=== PATIENT | female | born 1960 | race Caucasian/White ===

== ENCOUNTER → 2018-09-25 | Outpatient (CLI) | payer OTHER ==
[2017-08-25 10:29] VITALS: BMI 29.1
[~2018-09-25] MED LIST: ACET-1966 PO; ASPI-715 PO; AZI250 PO; CHOL10005 PO; DIA5 PO; DOCU-416 PO; EZET1TAB70 PO; HYDR473S4 PO; IBUP-56 PO; IBUP800T37 PO; MECL25TA27 PO; MELA5TAB20 PO; METH454P5 PO; MULT-27 PO; OXYC-865 PO; PAN20 PO; PROG100C PO; [UNRECOGNIZED DRUG - OTHER]
--- NOTE | 2018-09-25 14:32 | RADIOLOGY IMAGING REPORT ---
FACILITY: [facility] PATIENT NAME: Ofelia Huff : 1960 MR: [id number] V: [id number] EXAM DATE: ORDERING PHYSICIAN: MAREN VERA TECHNOLOGIST: Location: [facility] Patient: Ofelia Huff : 1960 Visit/Account:[id number] Date of Sevice: 09/25/2018 Lumbar spine Indication: Back pain. Comparison: None available FINDINGS: 3 views of the lumbar spine were obtained. There are 5 lumbar type vertebral bodies. There is no acute osseous or acute alignment abnormality. Moderate degenerative disc space disease is noted at L5-S1 with underlying facet arthropathy. The re mainder the disc spaces show only mild narrowing. The vertebral body heights appear well-maintained. IMPRESSION: 1. Moderate degenerative disc space disease at L5-S1. No acute abnormality noted Report Dictated By: Yariel Flores at 09/25/2018 2:26 PM Report E-Signed By: Yariel Flores at 09/25/2018 2:27 PM WSN:[id number]
--- NOTE | 2018-09-25 15:48 | RADIOLOGY IMAGING REPORT ---
FACILITY: PATIENT NAME: HERMILO RUDD : [id number] MR: [id number] V: [id number] EXAM DATE: [id number] ORDERING PHYSICIAN: MAREN VERA TECHNOLOGIST: Christiane Sharif PROCEDURE:BILATERAL DIGITAL SCREENING MAMMOGRAM WITH CAD ASSISTED INTERPRETATION & 3D TOMOSYNTHESIS COMPARISON:Prior mammogram 08/10/2017. INDICATIONS:SCREENING FINDINGS: The breast tissue demonstrates scattered fibroglandular tissue elements. There is no suspicious mass, calcification, or architectural distortion. DIAGNOSTIC CATEGORY 1--NEGATIVE. RECOMMENDATIONS: ROUTINE MAMMOGRAM AND CLINICAL EVALUATION IN 1 YR. IMPRESSION: BIRADS 1: Negative. No mammographic evidence for malignancy. Dictated by: Oscar Valente M.D. on 09/25/2018 at 14:34 Transcribed by: KAYLIN on 09/25/2018 at 14:50 Approved by: Oscar Valente M.D. on 09/25/2018 at 15:47 [facility]
== END ==
LOC: MAMO 02:48
PROVIDERS: ATTEND Nurse Practitioner Family
DX: Z12.31 Encounter for screening mammogram for malignant neoplasm of breast (principal); M47.896 Other spondylosis, lumbar region
CPT/HCPCS: 72100; 77063; 77067